=== PATIENT | female | born 1955 | race Caucasian/White ===

== ENCOUNTER 2017-11-25 14:50 | Emergency (ER) | payer OTHER ==
[~2017-11-25] VITALS: Ht 170.2 cm; Wt 90.7 kg
[2017-11-25 14:55] VITALS: BP 99/62
--- NOTE | 2017-11-25 15:59 | ED UPPER/LOWER EXTREMITY COMPL ---
History of Present Illness General Chief Complaint: Lower Extremity Problems Stated Complaint: RT LOWER LEG PAIN X 1WEEK Source: patient, old records Exam Limitations: no limitations Vital Signs & Intake/Output Vital Signs & Intake/Output Vital Signs Date Time Temp Pulse Resp B/P B/P Pulse O2 O2 Flow FiO2 Mean Ox Delivery Rate 11/25 1624 Room Air 11/25 1455 97.6 87 18 99/62 97 Room Air Allergies Coded Allergies: No Known Allergies (10/01/17) Triage Note: REPORTS RIGHT SIDED LOWER LEG PAIN. PAIN STARTS AT THE KNEE AND RADIATES DOWNWARDS. SHE IS ABLE TO AMBULATE HOWEVER DOES EXPERIENCE SOME DISCOMFORT. Triage Nurses Notes Reviewed? yes Onset: Abrupt Duration: day(s): (3), constant Timing: recent history Severity: moderate Severity Numbers: 5 Pain/Injury Location: Right: Leg. Method of Injury: unknown Modifying Factors: Worsens With: movement. Associated Symptoms: DENIES HPI: 62 year-old female history of hypothyroid depression presents complaining of right calf and lateral leg pain from below her kneefor the past few days. She denies any known injury or trauma symptoms are worse with change in position and weightbearing. She denies any swelling to her leg-no swelling no recent travel or immobility. She denies any left leg symptoms. No chest pain or shortness of breath she denies any numbness or tingling to her extremities no back pain Past History Travel History Traveled to [place] past 21 day No Medical History Any Pertinent Medical History? 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 No Review of Systems Review of Systems Constitutional: Reports: see HPI. Comments Review of systems: See HPI, All other systems negative. Constitutional, no chills no fever HEENT: no sore throat no congestion Cardiovascular: No chest pain Skin: no rashes, no change in skin Respiratory: No dyspnea no cough no sputum GI: No nausea no vomiting, no diarrhea, Muscle skeletal: no back pain, no neck pain, Neurologic: , no headache Heme/endocrine: No bruising Physical Exam Physical Exam General Appearance: well developed/nourished, no apparent distress, alert Comments: Well-developed well-nourished patient in no apparent distress. HEENT: Atraumatic, extraocular motion intact Neck: Supple, FROM Back: FROM Cardiovascular: Regular rate and rhythms no murmur Respiratory: No respiratory distress. Patient speaking in full complete sentences. Breath sounds clear to auscultation bilaterally: NO W/R/R Upper Extremities: full range of motion Hip/Pelvis: Atraumatic/Stable. FROM. Knee: Atraumatic/stable. FROM. No joint swelling, no effusion. No laxity. Negative danial/anterior drawer test. No pain with ROM Leg: Atraumatic. Nontender. No edema, 5 out of 5 strength in the lower extremity, normal dorsiflexion of great toe bilaterally, gross sensation is intact Ankle/Foot: Atraumatic/stable. Skin intact. FROM. No swelling, no effusion. No laxity on exam Pulses: Normal/equal DP/PT pulses bilaterally. Brisk cap refill Neuro: awake, alert, and oriented to person, place and time. There were no obvious focal neurologic abnormalities. Skin: Warm & dry;No appreciable rash on exposed skin Psych: Mood affect normal, normal memory normal judgment. Progress Differential Diagnosis: cellulitis, contusion, dislocation, DVT, fracture, gout, septic arthritis, sprain, tendon injury Plan of Care: Orders Procedure Date/time Status [id number], RIGHT 11/25 1536 Active Ultrasound x-rays ordered patient denies any symptoms at this time resting in no acute distress She is ambulatory with steady gait here she began she denies any trauma i had an extensive conversation regarding need for close follow up with their primary care physician this week as well as return precautions. I answered all of their questions, they feel comfortable with the plan and follow-up care. Diagnostic Imaging: Viewed by Me: Radiology Read, Ultrasound. Discussed w/RAD: Radiology Read, Ultrasound. Radiology Impression: PATIENT: TYSON MOURA PRESENT AGE: 62 PATIENT ACCOUNT NO: [id number] : 57 LOCATION: [facility] ORDERING PHYSICIAN: Boyd GAN SERVICE DATE: 11/25/17-1531 EXAM TYPE: US - US- UNILATERAL VENOUS DOPPLER EXAMINATION: US TRIPLEX LOWER EXTREMITY, RIGHT CLINICAL INFORMATION: Right lower extremity pain COMPARISON: None TECHNIQUE: Color-flow triplex imaging with spectral analysis and compression Doppler were performed on the lower extremity. FINDINGS: Slow venous flow in the right lower extremity noted. Respiratory variation, normal compression and augmented flow are noted throughout the lower extremity. The visualized common femoral vein, superficial femoral vein, profunda femoral vein, popliteal vein and midcalf peroneal and posterior tibial venous segments show no evidence of deep venous thrombosis. There is no Lynne's cyst. IMPRESSION: Slow venous flow within the right lower extremity. No evidence of deep venous thrombosis involving the lower extremity. DICTATED BY: Antonio Mayen MD DATE/TIME DICTATED:11/25/171622 MEDICAL TECHNOLOGIST:CRIS DATE/TIME TRANSCRIBED:11/25/171622 CONFIDENTIAL, DO NOT COPY WITHOUT APPROPRIATE AUTHORIZATION. <Electronically signed in Other Vendor System> SIGNED BY: Antonio Mayen MD 11/25/17 163, PATIENT: TYSON MOURA PRESENT AGE: 62 PATIENT ACCOUNT NO: [id number] : 57 LOCATION: [facility] ORDERING PHYSICIAN: Boyd GAN SERVICE DATE: 11/25/17 EXAM TYPE: RAD - [id number], RIGHT EXAMINATION : XR TIBIA AND FIBULA, RIGHT CLINICAL INFORMATION: Right leg pain. No known injury. COMPARISON: None TECHNIQUE: AP and lateral views of the right tibia and fibula were obtained along with crosstable lateral projection right knee for a total of 3 views. FINDINGS: There is no acute or healing fracture, dislocation, or destructive process. There is no periostitis. The retrocalcaneal recess is preserved. A bulky posterior calcaneal spur is seen at margin of field of view. There is small suprapatellar effusion. There is probable chondrocalcinosis at the posterior menisci in the knee. Hoffa's fat pad appears normal. There is some fine mineralization at the quadriceps insertion on the patella. IMPRESSION: 1. Small suprapatellar effusion. No fracture or destructive process. 2. Spurring quadriceps insertion patella and probable chondrocalcinosis meniscus. 3. Posterior calcaneal spur. DICTATED BY: Mikael Iqbal MD DATE/TIME DICTATED:1641 MEDICAL TECHNOLOGIST:CRIS DATE/TIME TRANSCRIBED:11/25/171641 CONFIDENTIAL, DO NOT COPY WITHOUT APPROPRIATE AUTHORIZATION. <Electronically signed in Other Vendor System> SIGNED BY: Mikael Iqbal MD 11/25/171657 Departure Departure Time of Disposition: 170 Disposition: HOME OR SELF CARE Condition: Stable Clinical Impression Primary Impression: Leg pain Referrals: Hayley VILLASENOR,Adan Elder (PCP/Family) Additional Instructions: Rest , ICE, Tylenol Motrin for pain. Follow-up with your primary care physician return with any concerns. Departure Forms: Customer Survey General Discharge Information
--- NOTE | 2017-11-25 16:31 | ULTRASOUND REPORT ---
EXAMINATION: US TRIPLEX LOWER EXTREMITY, RIGHT CLINICAL INFORMATION: Right lower extremity pain COMPARISON: None TECHNIQUE: Color-flow triplex imaging with spectral analysis and compression Doppler were performed on the lower extremity. FINDINGS: Slow venous flow in the right lower extremity noted. Respiratory variation, normal compression and augmented flow are noted throughout the lower extremity. The visualized common femoral vein, superficial femoral vein, profunda femoral vein, popliteal vein and midcalf peroneal and posterior tibial venous segments show no evidence of deep venous thrombosis. There is no Lynne's cyst. IMPRESSION: Slow venous flow within the right lower extremity. No evidence of deep venous thrombosis involving the lower extremity.
--- NOTE | 2017-11-25 16:58 | RADIOLOGY REPORT ---
EXAMINATION: XR TIBIA AND FIBULA, RIGHT CLINICAL INFORMATION: Right leg pain. No known injury. COMPARISON: None TECHNIQUE: AP and lateral views of the right tibia and fibula were obtained along with crosstable lateral projection right knee for a total of 3 views. FINDINGS: There is no acute or healing fracture, dislocation, or destructive process. There is no periostitis. The retrocalcaneal recess is preserved. A bulky posterior calcaneal spur is seen at margin of field of view. There is small suprapatellar effusion. There is probable chondrocalcinosis at the posterior menisci in the knee. Hoffa's fat pad appears normal. There is some fine mineralization at the quadriceps insertion on the patella. IMPRESSION: 1. Small suprapatellar effusion. No fracture or destructive process. 2. Spurring quadriceps insertion patella and probable chondrocalcinosis meniscus. 3. Posterior calcaneal spur.
== END 2017-11-25 17:25 ==
LOC: ERH 14:50
DX: M79.604 Pain in right leg (principal)
CPT/HCPCS: 73590-RT